=== PATIENT | male | born 1960 | race Caucasian/White ===

== ENCOUNTER 2022-01-23 23:35 | Emergency (ER) | payer OTHER ==
[2022-01-23 23:50] VITALS: BP 122/84; PULSE 65; RESP 16; TEMP 97.9; BMI 29.2
== END 2022-01-24 00:29 | disposition home or self-care (01) ==
LOC: FER 23:35
DX: I10 Essential (primary) hypertension (principal)
CPT/HCPCS: 99283-25

== ENCOUNTER 2023-07-30 04:35 | Emergency (ER) | payer OTHER ==
[2023-07-30 04:50] VITALS: BP 121/78; PULSE 57; RESP 16; TEMP 97.6; BMI 34.4
== END 2023-07-30 05:11 | disposition home or self-care (01) ==
LOC: FER 04:35
DX: F41.9 Anxiety disorder, unspecified (principal); Z95.810 Presence of automatic (implantable) cardiac defibrillator
CPT/HCPCS: 99281-25